=== PATIENT | male | born 1970 | race Caucasian/White ===

== ENCOUNTER 2022-10-08 08:30 | Emergency (ER) | payer SELFPAY ==
[~2022-10-08] VITALS: Ht 167.6 cm; Wt 90.7 kg
[2022-10-08 08:36] VITALS: BP 126/87
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
[2022-10-08] MEDS ORDERED: BACI-416 TP (09:08)
== END 2022-10-08 09:15 | disposition home or self-care (01) ==
LOC: MED 08:30
DX: S01.81XD Laceration without foreign body of other part of head, subsequent encounter (principal); Z48.02 Encounter for removal of sutures; Z88.2 Allergy status to sulfonamides; Z88.8 Allergy status to other drugs, medicaments and biological substances; Z79.899 Other long term (current) drug therapy; X58.XXXD Exposure to other specified factors, subsequent encounter
CPT/HCPCS: 99282

== ENCOUNTER 2024-01-20 19:57 | Emergency (ER) | payer MEDICAID, OTHER ==
[~2024-01-20] VITALS: Ht 167.6 cm; Wt 72.1 kg
[~2024-01-20 19:57] MED LIST: BACI-418 TP
[2024-01-20 20:09] VITALS: BP 142/83; PULSE 92; RESP 20; TEMP 97.7; O2SAT 98
[2024-01-20] MEDS: KETOROLAC 30 MG/ML VIAL IM ONE (21:12)
[2024-01-20] MEDS: LIDOCAINE MPF 1% 10 MG/ML VIAL INJ ONE (21:53)
[2024-01-20] MEDS ORDERED: IBUP-2213 PO (22:07)
[2024-01-20] MEDS ORDERED: AMOX-1230 PO (22:07)
[2024-01-20 22:25] VITALS: BP 142/83; PULSE 92; RESP 20; TEMP 97.7; O2SAT 98
== END 2024-01-20 22:25 | disposition home or self-care (01) ==
LOC: MED 19:57
DX: S61.412A Laceration without foreign body of left hand, initial encounter (principal); Z79.899 Other long term (current) drug therapy; Z88.2 Allergy status to sulfonamides; Z88.1 Allergy status to other antibiotic agents; W54.0XXA Bitten by dog, initial encounter; Y93.89 Activity, other specified; Y92.89 Other specified places as the place of occurrence of the external cause; Y99.8 Other external cause status
CPT/HCPCS: 12001; 73130; 90471; 90715; 96372; 99284; J1885; J2001